=== PATIENT | male | born 1985 | race Caucasian/White ===

== ENCOUNTER 2016-07-10 01:03 | Day surgery (SDC) | payer OTHER ==
[~2016-07-10 01:03] MED LIST: OMEP40CA36 PO
[2016-07-10] MEDS ORDERED: Lidocaine Topical 2% 30 mL Jelly ONE (08:17)
== END 2016-07-10 23:59 | disposition home or self-care (01) ==
LOC: END 01:03
PROVIDERS: ATTEND Internal Medicine Gastroenterology
DX: K21.9 Gastro-esophageal reflux disease without esophagitis (principal); Z53.8 Procedure and treatment not carried out for other reasons